=== PATIENT | female | born 1970 | race Caucasian/White ===

== ENCOUNTER → 2018-08-21 | Outpatient (CLI) | payer OTHER ==
--- NOTE | 2018-08-21 16:08 | US ---
EXAMINATION TYPE: US kidneys/renal and bladder DATE OF EXAM: 08/21/2018 COMPARISON: NONE CLINICAL HISTORY: R33.9 incomplete bladder emptying. PLEASE give full volume bladder , and post void volumes EXAM MEASUREMENTS: Right Kidney: 10.3 x 3.7x 3.6 cm Left Kidney: 9.8 x 5.7 x 3.5 cm Post Void Residual Volume: 22 mL full bladder volume: 186 ml Right Kidney: No hydronephrosis or masses seen Left Kidney: possible small calculi mid 0.3 cm non -obstructing Bladder: wnl Bilateral Jets seen: Yes Normal Post Void Residual: Yes There is no evidence for hydronephrosis at this point in time. No masses are identified. The urinar y bladder is anechoic. Bilateral ureteral jets are seen. IMPRESSION: Small nonobstructing nephrolithiasis.
== END ==
LOC: RADUSWWP 14:52
PROVIDERS: ATTEND Internal Medicine
DX: N20.0 Calculus of kidney (principal)
CPT/HCPCS: 76770

== ENCOUNTER → 2021-09-20 | Outpatient (CLI) | payer BC ==
--- NOTE | 2021-09-21 06:54 | MR ---
EXAMINATION TYPE: MR knee LT wo con DATE OF EXAM: 09/20/2021 COMPARISON: None HISTORY: Left knee pain x 5 yrs, no trauma. TECHNIQUE: Multiplanar, multisequence imaging of the left knee is performed without IV contrast. FINDINGS: MEDIAL MENISCUS: Anterior and posterior horns are intact without tear. LATERAL MENISCUS: Anterior and posterior horns are intact without tear. CRUCIATE LIGAMENTS: The anterior and posterior cruciate ligaments are intact and unremarkable. COLLATERAL LIGAMENTS: The medial collateral ligament and lateral collateral ligament complex are inta ct and unremarkable. EXTENSOR MECHANISM: Visualized quadriceps and patellar tendons are intact. EFFUSION: No significant suprapatellar joint effusion. POPLITEAL CYST: Tiny popliteal/kinney cyst axial image 20 for reference. TRICOMPARTMENT SPACES: Mild tricompartment joint space loss. No significant spurring. CARTILAGE: Tricompartment articular cartilage is fairly well preserved. BONE MARROW SIGNAL: No focal abnormal marrow signal is appreciated. OTHER: No additional significant abnormality is appreciated. IMPRESSION: No meniscal or ligamentous tear is evident.
--- NOTE | 2021-09-21 06:56 | MR ---
EXAMINATION TYPE: MR knee RT wo con DATE OF EXAM: 09/20/2021 COMPARISON: None. HISTORY: Right knee pain x 5 yrs, no trauma. TECHNIQUE: Multiplanar, multisequence imaging of the right knee is performed without IV contrast. FINDINGS: MEDIAL MENISCUS: Anterior and posterior horns are intact without tear. LATERAL MENISCUS: Anterior and posterior horns are intact without tear. CRUCIATE LIGAMENTS: The anterior and posterior cruciate ligaments are intact and unremarkable. COLLATERAL LIGAMENTS: The medial collateral ligament and lateral collateral ligament complex are inta ct and unremarkable. EXTENSOR MECHANISM: Visualized quadriceps and patellar tendons are intact. Some increased signal in t he fat pad just superior to the patella distal aspect of the quadriceps tendon is identified slightly more prominent in left kidney versus right knee. EFFUSION: No significant suprapatellar joint effusion. POPLITEAL CYST: No popliteal/kinney cyst. TRICOMPARTMENT SPACES: Tricompartmental joint spaces show mild narrowing. No significant spurring. CARTILAGE: Tricompartmental articular cartilage is preserved. BONE MARROW SIGNAL: No focal abnormal marrow signal is appreciated. OTHER: No additional significant abnormality is appreciated. IMPRESSION: No meniscal or ligamentous tear is seen. Correlate to exclude anterior suprapatellar fat pad impingement syndrome more prominent in the right knee versus left knee versus incidental finding.
== END | disposition home or self-care (01) ==
LOC: RADMRIMAIN 17:32
PROVIDERS: ATTEND Orthopaedic Surgery
DX: M25.562 Pain in left knee (principal); M25.561 Pain in right knee